=== PATIENT | female | born 1985 | race African-American/Black ===

== ENCOUNTER 2023-04-06 10:30 | Inpatient (IN) | payer OTHER ==
[2023-04-06] MEDS: DEXTROSE 5%-LACTATED RINGERS 1,000 ML IV SCH (12:00)
[2023-04-06 12:56] LABS: BASO % 0.2 % (0-2.0); EOS % 0.7 % (0-4.5); HEMOGLOBIN 10.8 GM/dL (10.7-15.3); LYMPH % 16.7 % (8-40); MCH 28.1 pg (25.7-33.7); MCHC 33.7 g/dl (32.0-36.0); MEAN CELL VOLUME 83.5 fl (80-96); MEAN PLT VOLUME 7.3 fl (7.5-11.1); MONO % 4.5 % (3.8-10.2); NEUT % 77.9 % (42.8-82.8); PLATELET COUNT 253 10^3/uL (134-434); RBC 3.83 M/mm3 (3.60-5.2); RDW 12.9 % (11.6-15.6); WHITE BLOOD COUNT 7.9 K/mm3 (4.0-10.0)
[2023-04-06 13:01] LABS: INR 1.1 (0.83-1.09); PROTHROMBIN TIME (PATIENT) 12.7 SEC (9.7-13.0)
[2023-04-06 13:04] LABS: ACTIVATED PTT 25.6 SECONDS (25.2-36.5)
[2023-04-06 13:23] LABS: POTASSIUM 3.6 mmol/L (3.5-5.1)
[2023-04-06 13:25] LABS: BLOOD UREA NITROGEN 5.3 mg/dL (7-18); CALCIUM 9.3 mg/dL (8.5-10.1)
[2023-04-06 13:28] LABS: CREATININE 0.5 mg/dL (0.55-1.3)
[2023-04-06 14:01] VITALS: BMI 40.8
[2023-04-06 15:28] LABS: METHADONE, UR NEGATIVE (NEGATIVE); OPIATES, URI NEGATIVE (NEGATIVE); URINE BARBITURATES NEGATIVE (NEGATIVE)
[2023-04-06 15:29] LABS: PHENCYCLIDINE,URINE NEGATIVE (NEGATIVE); URINE BENZODIAZEPINES NEGATIVE (NEGATIVE)
[2023-04-06 15:37] LABS: COCAINE, UR NEGATIVE (NEGATIVE); URINE AMPHETAMINES NEGATIVE (NEGATIVE)
[2023-04-06] MEDS: OXYTOCIN 30 UNITS in 0.9% NS 30 UNIT/500 ML INFUS.BAG IVPB SCH (16:35)
[2023-04-06] MEDS ORDERED: OXYTOCIN 30 UNITS in 0.9% NS 30 UNIT/500 ML INFUS.BAG IVPB ONE (16:36)
[2023-04-06 17:41] LABS: HIV INTERPRETATION NEGATIVE (NEGATIVE)
[2023-04-06] MEDS ORDERED: FENTANYL/BUPIVACAINE/NS/PF - PCEA - 50 ML DISP.SYRIN EP ONE (19:10)
[2023-04-06] MEDS ORDERED: BUPIVACAINE HCL/PF 0.25% (2.5MG/ML) 10 ML VIAL ONE (19:36)
[2023-04-06] MEDS ORDERED: LIDO 2%/EPI 1:200000 PRESRVFRE (20 ML SDVIAL) ONE (19:36)
[2023-04-06] MEDS ORDERED: FENTANYL CITRATE/PF 50 MCG/ML VIAL ONE (19:36)
[2023-04-06] MEDS: FENTANYL/BUPIVACAINE/NS/PF - PCEA - 50 ML DISP.SYRIN EP SCH (19:45)
[2023-04-06] MEDS ORDERED: NALOXONE HCL 0.4 MG/ML VIAL IVPUSH PRN (20:40)
[2023-04-06] MEDS: ELECTROLYTE-148 SOLN 1,000 ML IV SCH (22:00)
[2023-04-06] MEDS ORDERED: OXYTOCIN 20 UNITS in 0.9% NS 20 UNIT/1,000 ML INFUS.BAG IV ONE (23:45)
[2023-04-07] MEDS ORDERED: FENTANYL/BUPIVACAINE/NS/PF - PCEA - 50 ML DISP.SYRIN EP ONE (00:02)
[2023-04-07] MEDS ORDERED: LIDOCAINE HCL 1% PRESERVATIVE FREE - 30ML VIAL ONE (04:21)
[2023-04-07] MEDS ORDERED: METHYLERGONOVINE MALEATE 0.2 MG/1 ML AMP IM PRN (04:57)
[2023-04-07] MEDS ORDERED: BENZOCAINE 20% 57 GM BOTTLE TP PRN (04:57)
[2023-04-07] MEDS ORDERED: BENZOCAINE 28 GM HEMORRHOIDAL OINTMENT TP PRN (04:57)
[2023-04-07] MEDS ORDERED: BISACODYL 10 MG SUPP.RECT RC PRN (04:57)
[2023-04-07] MEDS ORDERED: WITCH HAZEL 50% (TUCKS) 40 PAD/JAR PAD TP PRN (04:57)
[2023-04-07] MEDS: OXYTOCIN 20 UNITS in 0.9% NS 20 UNIT/1,000 ML INFUS.BAG IV SCH (05:00)
[2023-04-07 06:20] LABS: CORD BASE EXCESS -8.4 mmol/L (0-2); CORD HCO3 21.8 mmHg (20-29); CORD PCO2 64.4 mmHg (30-78); CORD pH 7.147 (7.14-7.44)
[2023-04-07 06:24] LABS: CORD BASE EXCESS -4.8 mmol/L (0-2); CORD PCO2 46.8 mmHg (30-78); CORD pH 7.29 (7.14-7.44)
[2023-04-07] MEDS ORDERED: ACETAMINOPHEN 325 MG TABLET (FP) ONE (07:03)
[2023-04-07] MEDS: ACETAMINOPHEN 325 MG TABLET (FP) PO PRN (07:15)
[2023-04-07] MEDS: PRENATAL VITAMINS W/ FOLIC ACID TABLET (FP) PO SCH (10:31)
[2023-04-07] MEDS: IBUPROFEN 600 MG TABLET (FP) PO PRN (16:59)
[2023-04-07] MEDS: oxyCODONE HCL 5 MG TABLET PO PRN (19:18)
[2023-04-08 08:07] LABS: BASO % 0.2 % (0-2.0); EOS % 0.7 % (0-4.5); HEMATOCRIT 25.8 % (32.4-45.2); HEMOGLOBIN 8.8 GM/dL (10.7-15.3); LYMPH % 15.8 % (8-40); MCH 28.6 pg (25.7-33.7); MCHC 34.1 g/dl (32.0-36.0); MEAN CELL VOLUME 83.9 fl (80-96); MEAN PLT VOLUME 7.5 fl (7.5-11.1); MONO % 6.5 % (3.8-10.2); NEUT % 76.8 % (42.8-82.8); PLATELET COUNT 232 10^3/uL (134-434); RBC 3.07 M/mm3 (3.60-5.2); RDW 13.2 % (11.6-15.6); WHITE BLOOD COUNT 13.4 K/mm3 (4.0-10.0)
[2023-04-08] MEDS: FERROUS SO4 325 MG TABLET (FP) PO SCH (09:37)
[2023-04-08] MEDS ORDERED: SENNOSIDES/DOCUSATE COMBO (SENNA PLUS) TABLET (UD) PO PRN (22:00)
[2023-04-09 08:28] VITALS: BP 100/56; PULSE 81; RESP 18; TEMP 97.9
== END 2023-04-09 15:30 | disposition home or self-care (01) | DRG 560 ==
LOC: JDEL 10:30 → JLDR 12:40 → J3W 04-07 08:40
PROVIDERS: ADMIT Obstetrics & Gynecology; ATTEND Obstetrics & Gynecology
PROC: 10E0XZZ Delivery of Products of Conception, External Approach (ICD-10-PCS; principal; 2023-04-07)
DX: O99.02 Anemia complicating childbirth (principal); D57.3 Sickle-cell trait; O99.213 Obesity complicating pregnancy, third trimester; O98.513 Other viral diseases complicating pregnancy, third trimester; B00.9 Herpesviral infection, unspecified; Z3A.39 39 weeks gestation of pregnancy; Z37.0 Single live birth
CPT/HCPCS: 36415; 36600; 59025; 80048; 80307; 82803; 85025; 85610; 85730; 86780; 86850; 86900; 86901; 87389